=== PATIENT | male | born 1950 | race Asian ===

== ENCOUNTER 2023-09-15 15:06 | Emergency (ER) | payer MEDICARE ==
[~2023-09-15] VITALS: Ht 165.1 cm; Wt 84.1 kg
[2023-09-15 15:09] VITALS: TEMP 98
[2023-09-15] MEDS ORDERED: AMLO-257 PO (15:14)
[2023-09-15] MEDS ORDERED: NAPR220T57 PO (15:14)
[2023-09-15] MEDS ORDERED: METO25 PO (15:14)
[2023-09-15] MEDS ORDERED: VITA15DR3 PO (15:14)
[2023-09-15] MEDS ORDERED: METF-1211 PO (15:14)
[2023-09-15] MEDS ORDERED: CHOL400T56 PO (15:14)
[2023-09-15] MEDS ORDERED: ATOR10TA PO (15:14)
[2023-09-15] MEDS ORDERED: MULT9LIQ7 PO (15:14)
[2023-09-15] MEDS ORDERED: LOSA-382 PO (15:14)
[2023-09-15 16:49] LABS: BASOPHILS % (AUTO) 0.9 % (0.0-2.0); EOSINOPHILS % (AUTO) 2.1 % (1.0-6.0); HEMATOCRIT 43.8 % (41-53); HEMOGLOBIN 14.7 g/dL (13.5-17.5); LYMPHOCYTES # (AUTO) 1.7 K/uL (1.0-4.8); LYMPHOCYTES % (AUTO) 28.7 % (22.0-44.0); MEAN CORPUSCULAR HEMOGLOBIN 29.6 pg (26.0-34.0); MEAN CORPUSCULAR HGB CONC 33.5 G/dL (31.0-37.0); MEAN CORPUSCULAR VOLUME 88 fL (80-100); MONOCYTES # (AUTO) 0.4 K/uL (0.1-1.0); NEUTROPHILS # (AUTO) 3.8 K/uL (1.8-7.7); NEUTROPHILS % (AUTO) 62.3 % (40.0-70.0); PLATELET COUNT (AUTO) 305 K/uL (150-450); RED BLOOD CELL COUNT(AUTO) 4.96 MIL/uL (4.50-5.90); RED CELL DISTRIBUTION WIDTH 13.5 % (11.5-14.5); WHITE BLOOD COUNT (AUTO) 6.1 K/uL (4.5-11.0)
[2023-09-15 16:58] LABS: ANION GAP 9 mmol/L (8-16); CALCIUM, TOTAL 10.1 mg/dL (8.8-10.5); CARBON DIOXIDE 29 mmol/L (22-29); CHLORIDE 102 mmol/L (98-107); GLOMERULAR FILTR. RATE CALC > 60 mL/min (>60); GLUCOSE,RANDOM 113 mg/dL (70-110); POTASSIUM 3.9 mmol/L (3.5-5.1); SODIUM SERUM 140 mmol/L (136-145); UREA NITROGEN, BLOOD 15 mg/dL (7-18)
[2023-09-15 17:04] LABS: ALANINE AMINOTRANSFERASE 55 U/L (12-78); ALBUMIN 4.4 g/dL (3.4-5.0); ALKALINE PHOSPHATASE 52 U/L (46-116); ASPARTATE AMINOTRANSFERASE 24 U/L (15-37); BILIRUBIN,TOTAL 0.4 mg/dL (0.1-1.0); TOTAL PROTEIN, SERUM 8.4 g/dL (6.4-8.2)
[2023-09-15] MEDS ORDERED: TraMADol HCL 50 MG TABLET PO ONE (17:15)
[2023-09-15] MEDS ORDERED: LIDOCAINE 5% TRANSDERMAL PATCH TD ONE (17:15)
[2023-09-15 17:45] VITALS: BP 139/67; PULSE 64; RESP 20
[2023-09-15] MEDS ORDERED: CYCL-448 PO (19:30)
[2023-09-15] MEDS ORDERED: LIDO700A15 TP (19:30)
== END 2023-09-15 20:03 | disposition home or self-care (01) ==
LOC: EMS 15:13
DX: S13.4XXA Sprain of ligaments of cervical spine, initial encounter (principal); M54.50 Low back pain, unspecified; E11.9 Type 2 diabetes mellitus without complications; E78.00 Pure hypercholesterolemia, unspecified; I10 Essential (primary) hypertension; E03.9 Hypothyroidism, unspecified; X58.XXXA Exposure to other specified factors, initial encounter; Y93.89 Activity, other specified; Y92.89 Other specified places as the place of occurrence of the external cause; Y99.8 Other external cause status
CPT/HCPCS: 72100; 72125; 80053; 85025; 99284